=== PATIENT | male | born 1940 | race Caucasian/White ===

== ENCOUNTER → 2024-02-13 11:32 | Outpatient (REF) | payer OTHER, SELFPAY | LOC: HWRAD 11:32 | PROVIDERS: ATTENDING PHYSICIAN Internal Medicine | DX: S80.02XA Contusion of left knee, initial encounter (principal) | CPT/HCPCS: 73564 ==

== ENCOUNTER → 2025-04-17 12:05 | Outpatient (REF) | payer OTHER, SELFPAY | LOC: HWRAD 12:05 | PROVIDERS: ATTENDING PHYSICIAN Internal Medicine | DX: M54.16 Radiculopathy, lumbar region (principal) | CPT/HCPCS: 72110 ==